=== PATIENT | female | born 1970 | race Caucasian/White ===

== ENCOUNTER → 2020-08-27 09:46 | Outpatient (BNVA) | payer BC, SELFPAY | PROVIDERS: Family Provider Family Medicine; Visit Provider Obstetrics & Gynecology | DX: Z01.419 Encounter for gynecological examination (general) (routine) without abnormal findings (principal) | CPT/HCPCS: 82270 ==

== ENCOUNTER 2020-10-04 12:44 | Outpatient (CLI) | payer BC, SELFPAY ==
--- NOTE | 2020-10-04 13:05 | MM_ITS ---
WS: [id number] BILATERAL DIGITAL SCREENING MAMMOGRAPHY WITH CAD CLINICAL INFORMATION: SCREENING HISTORY: Screening mammogram. No current complaints. COMPARISON: TECHNIQUE: Bilateral CC and MLO views. FINDINGS: Scattered fibroglandular densities bilaterally. No suspicious focal mass, asymmetry, calcifications, or architectural distortion. No evidence of malignancy. MM/[place] [id number] IMPRESSION: BI-RADS: 1-Negative FOLLOW UP: 1 Year Follow-up Recommend return to annual screening mammography.
== END 2020-10-04 12:45 | disposition home or self-care (01) ==
LOC: RADSHAW 12:47
PROVIDERS: Family Provider Family Medicine; PCP Family Medicine; Visit Provider Family Medicine
DX: Z12.31 Encounter for screening mammogram for malignant neoplasm of breast (principal)
CPT/HCPCS: 77067

== ENCOUNTER 2021-12-01 07:54 | Outpatient (CLI) | payer OTHER, SELFPAY ==
--- NOTE | 2021-12-01 08:09 | MM_ITS ---
WS: [id number] BILATERAL DIGITAL SCREENING MAMMOGRAPHY WITH CAD CLINICAL INFORMATION: SCREENING HISTORY: Screening mammogram. No current complaints. COMPARISON: October 04, 2020 TECHNIQUE: Bilateral CC and MLO views. FINDINGS: Scattered fibroglandular densities bilaterally. No suspicious focal mass, asymmetry, calcifications, or architectural distortion. No evidence of malignancy. MM/[place] [id number] IMPRESSION: BI-RADS: 1-Negative FOLLOW UP: 1 Year Follow-up Recommend return to annual screening mammography.
== END 2021-12-01 07:55 | disposition home or self-care (01) ==
LOC: RADSHAW 08:00
PROVIDERS: PCP Nurse Practitioner Family; Visit Provider Nurse Practitioner Family
DX: Z12.31 Encounter for screening mammogram for malignant neoplasm of breast (principal)
CPT/HCPCS: 77067

== ENCOUNTER 2021-12-12 07:30 | Outpatient (CLI) | payer OTHER, SELFPAY ==
--- NOTE | 2021-12-12 07:38 | US_ITS ---
WS: [id number] THYROID ULTRASOUND HISTORY: ENLARGED THYROID COMPARISON: None available. Right lobe: 1.7 cm x 1.4 cm x 4.7 cm (w x ap x l). Volume: 5.8 cm3. Thyroid is top normal size. There are no suspicious masses. There are a few scattered hypoechoic area s within the gland which are all less than a centimeter. The largest hypoechoic nodule in the mid gla nd measures 7 x 4 x 7 mm. Mild increased vascularity and no calcification. Left lobe: 1.2 cm x 1.1 cm x 3.7 cm (w x ap x l). Volume: 2.6 cm3. Small thyroid gland. No suspicious masses. Isthmus: 0.3 cm. US/US thyroid [id number] IMPRESSION: 1. No suspicious dominant mass or suspicious mass with calcification. 2. Very unremarkable appearing 7 mm nodule in the RIGHT gland.
== END 2021-12-12 07:31 | disposition home or self-care (01) ==
PROVIDERS: PCP Nurse Practitioner Family; Visit Provider Nurse Practitioner Family
DX: E04.9 Nontoxic goiter, unspecified (principal); E04.1 Nontoxic single thyroid nodule
CPT/HCPCS: 76536

== ENCOUNTER 2023-03-08 07:39 | Outpatient (CLI) | payer BC, MEDICAID, SELFPAY ==
--- NOTE | 2023-03-08 07:51 | MM_ITS ---
WS: [id number] BILATERAL SCREENING DIGITAL TOMOSYNTHESIS MAMMOGRAM WITH CAD HISTORY: SCREENING COMPARISON: 12/01/2021, 10/04/2020 Bilateral CC and MLO views with tomosynthesis and synthetic mammography submitted. Computer aided det ection analyzed. Breast composition: There are scattered areas of fibroglandular density. No suspicious masses, microc alcifications or architectural distortion. MM/[place] [id number] IMPRESSION: BI-RADS: 2-Benign FOLLOW UP: 1 Year Follow-up
== END 2023-03-08 07:40 | disposition home or self-care (01) ==
PROVIDERS: PCP Nurse Practitioner Family; Visit Provider Nurse Practitioner Family
DX: Z12.11 Encounter for screening for malignant neoplasm of colon (principal)
CPT/HCPCS: 77063; 77067

== ENCOUNTER 2023-11-09 06:48 | Outpatient (CLI) | payer BC, MEDICAID, SELFPAY ==
--- NOTE | 2023-11-09 07:15 | US_ITS ---
WS: [id number] THYROID ULTRASOUND HISTORY: THYROID NODULE COMPARISON: 12/12/2021 Right lobe: 1.7 cm x 2.0 cm x 5.1 cm (w x ap x l). Volume: 8.9 cm3. Slightly enlarged RIGHT thyroid lobe. Reidentified is the hypoechoic nodule in the mid gland without increased vascularity measuring 7 x 5 x 9 mm. No increase in size. There is increased vascularity wit hin the nodule. No definite echogenic foci. There are a few additional scattered very tiny hypoechoic nodules present. Left lobe: 1.4 cm x 1.5 cm x 3.7 cm (w x ap x l). Volume: 4.1 cm3. Reidentified are very tiny scattered hypoechoic nodules which may be colloid cyst. No mass. Isthmus: 0.2 cm. Small bilateral cervical chain lymph nodes. IMPRESSION: 1. Stable thyroid gland. No change in the subcentimeter RIGHT thyroid nodule since 12/12/2021. 2. No dominant or suspicious mass.
== END 2023-11-09 06:49 | disposition home or self-care (01) ==
LOC: RAD 06:48
PROVIDERS: PCP Nurse Practitioner Family; Visit Provider Nurse Practitioner Family
DX: E04.1 Nontoxic single thyroid nodule (principal)
CPT/HCPCS: 76536

== ENCOUNTER 2024-05-15 14:55 | Outpatient (CLI) | payer BC, MEDICAID, SELFPAY ==
--- NOTE | 2024-05-15 15:01 | MM_ITS ---
WS: [id number] BILATERAL 3D TOMOSYNTHESIS DIGITAL SCREENING MAMMOGRAPHY WITH CAD CLINICAL INFORMATION: SCREENING HISTORY: Screening mammogram. No current complaints. COMPARISON: 2022 TECHNIQUE: Bilateral CC and MLO views. FINDINGS: Scattered fibroglandular densities bilaterally. No suspicious focal mass, asymmetry, calcifications, or architectural distortion. No evidence of malignancy. MM/[place] [id number] IMPRESSION: BI-RADS: 1-Negative FOLLOW UP: 1 Year Follow-up Recommend return to annual screening mammography.
== END 2024-05-15 14:56 | disposition home or self-care (01) ==
LOC: RAD 14:55
PROVIDERS: PCP Nurse Practitioner Family; Visit Provider Nurse Practitioner Family
DX: Z12.31 Encounter for screening mammogram for malignant neoplasm of breast (principal); R92.323 Mammographic fibroglandular density, bilateral breasts
CPT/HCPCS: 77063; 77067

== ENCOUNTER → 2024-06-06 14:50 | Outpatient (BNVA) | payer BC, MEDICAID, SELFPAY | PROVIDERS: PCP Nurse Practitioner Family; Visit Provider Obstetrics & Gynecology | DX: Z12.4 Encounter for screening for malignant neoplasm of cervix (principal) | CPT/HCPCS: 87624 ==

== ENCOUNTER 2024-10-31 08:17 | Outpatient (CLI) | payer BC, MEDICAID, SELFPAY ==
--- NOTE | 2024-10-31 08:18 | USR_ITS ---
PROCEDURE INFORMATION: Exam: US Right Limited Joint or Other Non-Vascular Extremity Structure Exam date and time: 10/31/2024 8:24 AM Age: 54 years old Clinical indication: Mass or lump; Lower leg; Right; Additional info: Subcutaneous mass of R leg TECHNIQUE: Imaging protocol: US right limited joint or other nonvascular extremity structure. Real-time ultrasound with image documentation. Exam focused on the area of clinical interest. COMPARISON: US transvaginal [id number] 12/15/2017 2:22 PM FINDINGS: Soft tissues: Unremarkable. No loculated collections. No visible mass. US/US soft tissue/extremity [id number] IMPRESSION: Unremarkable US.
== END 2024-10-31 08:18 | disposition home or self-care (01) ==
LOC: RAD 08:17
PROVIDERS: PCP Nurse Practitioner Family; Visit Provider Nurse Practitioner Family
DX: R22.41 Localized swelling, mass and lump, right lower limb (principal)
CPT/HCPCS: 76882

== ENCOUNTER 2025-05-24 09:48 | Outpatient (CLI) | payer BC, MEDICAID, SELFPAY ==
--- NOTE | 2025-05-24 | MM_ITS ---
WS: [id number] BILATERAL SCREENING DIGITAL TOMOSYNTHESIS MAMMOGRAM WITH CAD HISTORY: ANNUAL SCREENING COMPARISON: 05/15/2024, 03/08/2023 Bilateral CC and MLO views with tomosynthesis and synthetic mammography submitted. Computer aided detection analyzed. Breast composition: There are scattered areas of fibroglandular density. No suspicious masses, microcalcifications or architectural distortion. MM/MM scr BI tomosynthesis [id number] IMPRESSION: BI-RADS: 1 - Negative. FOLLOW UP: 1 Year Follow-up
== END 2025-05-24 09:49 | disposition home or self-care (01) ==
LOC: RAD 09:49
PROVIDERS: PCP Nurse Practitioner Family; Visit Provider Nurse Practitioner Family
DX: Z12.31 Encounter for screening mammogram for malignant neoplasm of breast (principal); R92.323 Mammographic fibroglandular density, bilateral breasts
CPT/HCPCS: 77063; 77067